=== PATIENT | male | born 1985 | race African-American/Black ===

== ENCOUNTER 2017-01-25 17:25 | Emergency (ER) | payer OTHER ==
[~2017-01-25] VITALS: Ht 180.3 cm; Wt 90.7 kg
[2017-01-25 18:00] LABS: APPEARANCE,URINE SLIGHTLY CLOUDY; KETONES,URINE NEGATIVE (NEGATIVE); LEUKOCYTE ESTERASE ,URINE 2+ (NEGATIVE); NITRITE,URINE NEGATIVE (NEGATIVE); PH,URINE 6 (4.5-8.0); PROTEIN,URINE 2+ (NEGATIVE); UROBILINOGEN,URINE 8 MG/DL (0.0-1.0)
[2017-01-25 18:07] LABS: BASOPHILS % (AUTO) 1.5 % (0.0-2.0); EOSINOPHILS % (AUTO) 4.4 % (0.0-3.0); LYMPHOCYTES % (AUTO) 27.8 % (20.0-45.0); MEAN CORPUSCULAR HEMOGLOBIN 23.2 PG (27.0-31.0); MEAN CORPUSCULAR HGB CONC 29.5 G/DL (32.0-36.0); MEAN CORPUSCULAR VOLUME 79 FL (80-99); MEAN PLATELET VOLUME 8.9 FL (6.5-10.1); MONOCYTES % (AUTO) 10.2 % (1.0-10.0); NEUTROPHILS % (AUTO) 56.1 % (45.0-75.0); PLATELET COUNT 221 K/UL (150-450); RED BLOOD COUNT 5.56 M/UL (4.70-6.10); RED CELL DISTRIBUTION WIDTH 14.2 % (11.6-14.8); WHITE BLOOD COUNT 6.7 K/UL (4.8-10.8)
[2017-01-25 18:10] LABS: BACTERIA,URINE FEW /HPF; MUCUS,URINE FEW /LPF (NONE/OCC); SQUAMOUS EPITHELIAL CELL,UR OCCASIONAL /LPF (NONE/OCC); WBC,URINE 15-20 /HPF (0 - 0)
[2017-01-25] MEDS ORDERED: QUETIAPINE FUMA25 MG ORAL (18:25)
[2017-01-25 18:32] LABS: ALANINE AMINOTRANSFERASE 27 U/L (12-78); ALBUMIN/GLOBULIN RATIO 0.9 (1.0-2.7); ALCOHOL < 3 mg/dL; ANION GAP 8 mmol/L (5-15); ASPARTATE AMINO TRANSFERASE 20 U/L (15-37); CALCIUM 9.1 MG/DL (8.5-10.1); CARBON DIOXIDE 29 MMOL/L (21-32); CHLORIDE 102 MMOL/L (98-107); CREATININE 0.9 MG/DL (0.55-1.30); GLOMERULAR FILTRATION RATE > 60 mL/min (>60); POTASSIUM 3.8 MMOL/L (3.5-5.1); SODIUM 139 MMOL/L (136-145); TOTAL PROTEIN 7.8 G/DL (6.4-8.2)
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
[2017-01-25 18:50] LABS: BILIRUBIN,DIRECT 0.2 MG/DL (0.0-0.3)
[2017-01-25 18:54] LABS: ACETAMINOPHEN < 2 MCG/ML (10-30)
[2017-01-25] MEDS ORDERED: Cephalexin 500mg cap ORAL ONE (19:00)
[2017-01-25 21:00] VITALS: BP 110/83
[2017-01-26 02:33] VITALS: BP 115/82
[2017-01-26 05:30] VITALS: BP 120/85
[2017-01-26 07:30] VITALS: BP 118/78
--- NOTE | 2017-01-26 09:19 | Diagnostic Imaging Report ---
Indication: PAIN Technique: 3 views right hand Comparison: none Findings: There are old healed fracture deformities of the third and metacarpals. No acute fractures. No dislocations. The joint spaces are preserved. Impression: No acute bony trauma
--- NOTE | 2017-01-26 11:52 | Consultation ---
History of Present Illness General Chief Complaint: Upper Extremity Injury Present Illness HPI 31 YO Male Pt presents to the ED on a 5150 [address] SMART team for agitation , poor impulse control, and waving a hammer at people on the street. the pt used crystal meth and mj. during my eval the pt was cooperative and didn't endorse any psychotic manic sxs. no SI the pts presentation was in the context of drug use. the pt is not at imminent dts/dto. the pt wa laughing appropriately and was able to have a logical convo. Allergies: Coded Allergies: No Known Allergies (Unverified , 01/25/17) Medication History Scheduled Quetiapine Fumarate* (Seroquel*), 25 MG ORAL DAILY, (Reported) Patient History History Provided By: Patient, Medical Record Healthcare decision maker Resuscitation status Advanced Directive on File Past Medical/Surgical History Past Medical/Surgical History: (1) Behavior disturbance (2) UTI (urinary tract infection) (3) Amphetamine abuse (4) History of depression (5) Marijuana use Review of Systems Psychiatric: Reports: prior hx, hallucinations Physical Exam General Appearance: no apparent distress, alert Neurologic: alert, oriented x 3, responsive, normal mood/affect Last 24 Hour Vital Signs Date Time Temp Pulse Resp B/P (MAP) Pulse Ox O2 Delivery O2 Flow Rate FiO2 01/26/17 07:30 97.7 80 16 118/78 98 Room Air 01/26/17 05:30 18 120/85 96 Room Air 01/26/17 02:33 14 115/82 99 Room Air 01/25/17 21:00 16 110/83 97 Room Air 01/25/17 17:21 98.2 81 20 118/81 99 Room Air Laboratory Tests Test 01/25/17 17:40 White Blood Count 6.7 K/UL (4.8-10.8) Red Blood Count 5.56 M/UL (4.70-6.10) Hemoglobin 12.9 G/DL (14.2-18.0) L Hematocrit 43.8 % (42.0-52.0) Mean Corpuscular Volume 79 FL (80-99) L Mean Corpuscular Hemoglobin 23.2 PG (27.0-31.0) L Mean Corpuscular Hemoglobin Concent 29.5 G/DL (32.0-36.0) L Red Cell Distribution Width 14.2 % (11.6-14.8) Platelet Count 221 K/UL (150-450) Mean Platelet Volume 8.9 FL (6.5-10.1) Neutrophils (%) (Auto) 56.1 % (45.0-75.0) Lymphocytes (%) (Auto) 27.8 % (20.0-45.0) Monocytes (%) (Auto) 10.2 % (1.0-10.0) H Eosinophils (%) (Auto) 4.4 % (0.0-3.0) H Basophils (%) (Auto) 1.5 % (0.0-2.0) Urine Color Yellow Urine Appearance Slightly cloudy Urine pH 6 (4.5-8.0) Urine Specific [place] 1.015 (1.005-1.035) Urine Protein 2+ (NEGATIVE) H Urine Glucose (UA) Negative (NEGATIVE) Urine Ketones Negative (NEGATIVE) Urine Occult Blood Negative (NEGATIVE) Urine Nitrite Negative (NEGATIVE) Urine Bilirubin Negative (NEGATIVE) Urine Urobilinogen 8 MG/DL (0.0-1.0) H Urine Leukocyte Esterase 2+ (NEGATIVE) H Urine RBC 5-10 /HPF (0 - 0) H Urine WBC 15-20 /HPF (0 - 0) H Urine Squamous Epithelial Cells Occasional /LPF Urine Bacteria Few /HPF (NONE) Urine Mucus Few /LPF (NONE/OCC) H Sodium Level 139 MMOL/L (136-145) Potassium Level 3.8 MMOL/L (3.5-5.1) Chloride Level 102 MMOL/L (98-107) Carbon Dioxide Level 29 MMOL/L (21-32) Anion Gap 8 mmol/L (5-15) Blood Urea Nitrogen 11 mg/dL (7-18) Creatinine 0.9 MG/DL (0.55-1.30) Estimat Glomerular Filtration Rate > 60 mL/min (>60) Glucose Level 87 MG/DL (74-106) Calcium Level 9.1 MG/DL (8.5-10.1) Total Bilirubin 1.1 MG/DL (0.2-1.0) H Direct Bilirubin 0.2 MG/DL (0.0-0.3) Aspartate Amino Transf (AST/SGOT) 20 U/L (15-37) Alanine Aminotransferase (ALT/SGPT) 27 U/L (12-78) Alkaline Phosphatase 60 U/L (46-116) Total Protein 7.8 G/DL (6.4-8.2) Albumin 3.7 G/DL (3.4-5.0) Globulin 4.1 g/dL Albumin/Globulin Ratio 0.9 (1.0-2.7) L Salicylates Level 1.3 ug/mL (2.8-20) L Urine Opiates Screen Negative (NEGATIVE) Acetaminophen Level < 2 MCG/ML (10-30) L Urine Barbiturates Screen Negative (NEGATIVE) Phencyclidine (PCP) Screen Negative (NEGATIVE) Urine Amphetamines Screen Positive (NEGATIVE) H Urine Benzodiazepines Screen Negative (NEGATIVE) Urine Cocaine Screen Negative (NEGATIVE) Urine Marijuana (THC) Screen Positive (NEGATIVE) H Serum Alcohol < 3 mg/dL Height (Feet): 5 Height (Inches): 11.00 Weight (Pounds): 200 Assessment/Plan Status: doing well, stable Assessment/Plan substance induced psychosis. dc the 5150 pt to be discharged. Catherine Parish M.D. Jan 26, 2017 11:52
[2017-01-26] MEDS ORDERED: KEFLEX500 MG ORAL (11:55)
[2017-01-26 12:12] VITALS: BP 155/88
== END 2017-01-26 12:30 ==
LOC: EDBD 17:25 → EMR 18:00
DX: F91.9 Conduct disorder, unspecified (principal); F15.10 Other stimulant abuse, uncomplicated; F12.90 Cannabis use, unspecified, uncomplicated; N39.0 Urinary tract infection, site not specified; F31.9 Bipolar disorder, unspecified; F20.9 Schizophrenia, unspecified
CPT/HCPCS: 36415; 80053; 80307; 80329; 81003; 82248; 85025; 87086; 99285